=== PATIENT | female | born 1990 | race Two or more races ===

== ENCOUNTER 2017-05-31 13:48 | Emergency (ER) | payer BC ==
[~2017-05-31] VITALS: Ht 162.6 cm; Wt 57.7 kg
[2017-05-31 13:51] VITALS: BP 112/76
[2017-05-31] MEDS ORDERED: FAMOTIDINE 20 MG TABLET ONE (15:27)
[2017-05-31] MEDS ORDERED: FAMOTIDINE 20 MG TABLET PO ONE (15:30)
== END 2017-05-31 15:46 | disposition home or self-care (01) ==
LOC: ED 15:40
DX: L50.0 Allergic urticaria (principal)
CPT/HCPCS: 99284; J7512; Q0177

== ENCOUNTER 2017-08-13 10:40 | Emergency (ER) | payer BC, OTHER ==
[~2017-08-13] VITALS: Ht 162.6 cm; Wt 59.0 kg
[2017-08-13 10:50] VITALS: BP 125/66
[2017-08-13 11:24] LABS: HEMATOCRIT 32.9 % (34.6-47.8); HEMOGLOBIN 11.2 g/dL (11.7-16.4); WHITE BLOOD COUNT 8.8 x10^3/uL (3.4-10)
[2017-08-13 11:34] LABS: BLOOD UREA NITROGEN 9 mg/dL (7-18)
== END 2017-08-13 13:54 | disposition home or self-care (01) ==
LOC: ED 13:50
DX: N93.8 Other specified abnormal uterine and vaginal bleeding (principal); N92.1 Excessive and frequent menstruation with irregular cycle; J00 Acute nasopharyngitis [common cold]; J30.9 Allergic rhinitis, unspecified
CPT/HCPCS: 36415; 80048; 82040; 84703; 85025; 99284